=== PATIENT | male | born 1945 | race Two or more races ===

== ENCOUNTER 2021-05-12 08:26 | Emergency (ER) | payer OTHER ==
[~2021-05-12] VITALS: Ht 180.3 cm; Wt 122.5 kg
[2021-05-12 09:55] LABS: Basophils # (auto) 0 10 ^3/uL (0-0.2); Basophils % (auto) 0.5 % (0.0-2.0); Eosinophils # (auto) 0 10 ^3/uL (0-0.8); Eosinophils % (auto) 0.3 % (0.0-7.0); Hematocrit 39.7 % (41.0-53.0); Hemoglobin 13.2 g/dL (13.5-17.5); Lymphocytes % (auto) 10.4 % (10.0-50.0); Mean Corpuscular Hemoglobin 31.1 pg (28.0-32.0); Mean Corpuscular Hgb Conc. 33.2 g/dL (32.0-36.0); Mean Corpuscular Volume 93.6 fL (80.0-100.0); Monocytes # (auto) 0.9 10 ^3/uL (0-1.3); Monocytes % (auto) 9.9 % (0.0-12.0); Neutrophils # (auto) 7.6 10 ^3/uL (1.6-8.6); Neutrophils % (auto) 78.9 % (37.0-80.0); Nucleated Red Blood Cells % 0.1 %; Red Blood Cells 4.24 10^6/uL (4.5-5.90); Red Cell Distribution Width 15.6 % (11.8-14.3); White Blood Cell 9.6 10^3/uL (4.4-10.8)
[2021-05-12 10:12] LABS: Albumin 3.2 g/dL (3.4-5.0)
[2021-05-12 10:17] LABS: BUN/Creatinine Ratio 23.8; Total Protein 7.2 g/dL (6.4-8.2)
[2021-05-12 10:52] LABS: Potassium 5.7 mmol/L (3.5-5.1)
[2021-05-12] MEDS ORDERED: HYDROmorphone HCL 2 MG/ML VL IV ONE (11:30)
[2021-05-12] MEDS ORDERED: ALBUTEROL SULF 2.5 MG/0.5ML(0.5%) NEB SOLN NEB ONE ×2 (11:30→20:15)
[2021-05-12] MEDS ORDERED: SODIUM CHLORIDE 0.9% 1,000 ML IV ONE (11:30)
[2021-05-12] MEDS ORDERED: IPRATROPIUM BROM 0.5 MG/2.5ML INH SOL NEB ONE ×2 (11:30→20:15)
[2021-05-12] MEDS ORDERED: METOCLOPRAMIDE HCL 5MG/ml INJ 2ml VIAL IV ONE (11:30)
[2021-05-12] MEDS ORDERED: methylPREDNISolone SOD SUCC 125 MG/2 ML VL IV ONE (11:30)
[2021-05-12 13:42] LABS: Urine Bacteria NONE SEEN /hpf (None Seen); Urine Blood 2+ /uL (Negative); Urine Mucus FEW (None Seen); Urine Specific Gravity 1.023 (1.001-1.035); Urine WBC 5 /hpf (0 - 3)
[2021-05-12] MEDS ORDERED: AZITHROMYCIN 500MG/ 250ML 250 ML IV ONE (15:15)
[2021-05-12] MEDS ORDERED: cefTRIAXone 1GM/50ML D5W 50 ML IV ONE (15:15)
[2021-05-12 19:29] LABS: Lactic Acid w/Reflex 2.8 mmol/L (0.4-2.0)
[2021-05-12 22:19] VITALS: BP 124/71
== END 2021-05-12 22:41 | disposition short-term general hospital (02) ==
LOC: ER 08:26 → EDBD 08:26 → ER 22:41
DX: J18.9 Pneumonia, unspecified organism (principal); R41.82 Altered mental status, unspecified; J90 Pleural effusion, not elsewhere classified; N40.0 Benign prostatic hyperplasia without lower urinary tract symptoms; J44.1 Chronic obstructive pulmonary disease with (acute) exacerbation; R39.14 Feeling of incomplete bladder emptying; K44.9 Diaphragmatic hernia without obstruction or gangrene; E11.9 Type 2 diabetes mellitus without complications; Z20.822 Contact with and (suspected) exposure to COVID-19
CPT/HCPCS: 36415; 71045; 74176; 80053; 81001; 82962; 83605; 83690; 83735; 84132; 84484; 85025; 87040; 87426; 93005; 94640; 96361; 96365; 96368; 96375; 99285; J0456; J0696; J1170; J2930; J7030; J7644

== ENCOUNTER 2021-06-14 21:45 | Inpatient (IN) | payer OTHER ==
[~2021-06-14] VITALS: Ht 182.9 cm; Wt 116.0 kg
[2021-06-14 23:26] LABS: Urine WBC None Seen /hpf (0 - 3)
[2021-06-14 23:30] LABS: Urine Bacteria NONE SEEN /hpf (None Seen); Urine Blood 2+ /uL (Negative); Urine Mucus FEW (None Seen); Urine Specific Gravity 1.023 (1.001-1.035)
[2021-06-15] LABS: Basophils # (auto) 0 10 ^3/uL (0-0.2); Basophils % (auto) 0.1 % (0.0-2.0); Eosinophils # (auto) 0 10 ^3/uL (0-0.8); Eosinophils % (auto) 0.2 % (0.0-7.0); Hematocrit 38.5 % (41.0-53.0); Hemoglobin 12.5 g/dL (13.5-17.5); Lymphocytes # (auto) 0.4 10 ^3/uL (0.4-5.4); Lymphocytes % (auto) 3.8 % (10.0-50.0); Mean Corpuscular Hgb Conc. 32.6 g/dL (32.0-36.0); Mean Corpuscular Volume 92.2 fL (80.0-100.0); Monocytes # (auto) 0.5 10 ^3/uL (0-1.3); Monocytes % (auto) 4.7 % (0.0-12.0); Neutrophils # (auto) 9.8 10 ^3/uL (1.6-8.6); Neutrophils % (auto) 91.2 % (37.0-80.0); Red Blood Cells 4.17 10^6/uL (4.5-5.90); Red Cell Distribution Width 16.6 % (11.8-14.3); White Blood Cell 10.8 10^3/uL (4.4-10.8)
[2021-06-15 00:24] LABS: Albumin 2.1 g/dL (3.4-5.0); Calcium 7.7 mg/dL (8.5-10.1); Potassium 4.3 mmol/L (3.5-5.1)
[2021-06-15 00:29] LABS: BUN/Creatinine Ratio 45.8; Bilirubin, Total 0.6 mg/dL (0.2-1.0)
[2021-06-15] MEDS ORDERED: DEXTROSE 50% SYRINGE 50 ML IV ONE (05:32)
[2021-06-15] MEDS ORDERED: DEXTROSE 10% 1,000 ML IV ONE (05:33)
[2021-06-15] MEDS ORDERED: levoFLOXacin 500MG 100 ML IV ONE (06:45)
[2021-06-15] MEDS ORDERED: DEXTROSE (25%) 10 ML SYRG IV ONE ×2 (07:30)
[2021-06-15] MEDS ORDERED: ENOXAPARIN SOD 120 MG/0.8 ML SYRINGE SC ONE (09:30)
[2021-06-15] MEDS ORDERED: NITROGLYCERIN 0.4 MG SL TAB SL PRN (12:30)
[2021-06-15] MEDS ORDERED: MORPHINE SULFATE INJECTION 2 MG/ML SYRG IV PRN ×2 (12:30→16:30)
[2021-06-15] MEDS ORDERED: IPRATROPIUM BROM 0.5 MG/2.5ML INH SOL NEB ONE ×2 (14:45→16:30)
[2021-06-15] MEDS ORDERED: DEXTROSE (50%) 50ML SYRG IV PRN (16:15)
[2021-06-15] MEDS ORDERED: ALBUTEROL SULF 2.5 MG/0.5ML(0.5%) NEB SOLN NEB ONE (16:30)
[2021-06-15] MEDS ORDERED: DOCUSATE SOD 100 MG CAP PO PRN (16:30)
[2021-06-15] MEDS ORDERED: METOPROLOL SUCCINATE XL 50 MG TAB PO ONE (16:30)
[2021-06-15] MEDS ORDERED: HYDROcodone-ACET 5/325MG TAB PO PRN (16:30)
[2021-06-15] MEDS ORDERED: BUDESONIDE (INHALATION) 0.5 MG/2 ML NEB NEB ONE (16:30)
[2021-06-15] MEDS ORDERED: HYDROcodone-ACET 5/325MG TAB PO ONE (16:30)
[2021-06-15] MEDS ORDERED: ONDANSETRON HCL 4 MG/2 ML VIAL IV PRN (16:30)
[2021-06-15] MEDS ORDERED: LORazepam 0.5 MG TAB PO PRN (16:30)
[2021-06-15] MEDS ORDERED: hydrALAZINE HCL 20 MG/ML VL IV PRN (16:30)
[2021-06-15] MEDS ORDERED: IPRATROPIUM BROM 0.5 MG/2.5ML INH SOL NEB PRN (16:45)
[2021-06-15] MEDS ORDERED: QUET25TA37 PO (17:01)
[2021-06-15] MEDS ORDERED: BISO5TAB44 PO (17:01)
[2021-06-15] MEDS ORDERED: TAMS0.4C36 PO (17:01)
[2021-06-15] MEDS ORDERED: METH4TAB PO (17:01)
[2021-06-15] MEDS ORDERED: CLON0.5T3 PO (17:01)
[2021-06-15] MEDS ORDERED: LIDO2SOL18 MT (17:01)
[2021-06-15] MEDS ORDERED: WARF3TAB22 PO (17:01)
[2021-06-15] MEDS ORDERED: FINA5TAB4 PO (17:01)
[2021-06-15] MEDS ORDERED: NYS5LQ MT (17:01)
[2021-06-15] MEDS ORDERED: LOSA-69 PO (17:01)
[2021-06-15] MEDS ORDERED: DULO20CA PO (17:01)
[2021-06-15 17:45] VITALS: BP 132/56
[2021-06-15] MEDS ORDERED: IPRATROPIUM BROM 0.5 MG/2.5ML INH SOL NEB SCH (18:00)
[2021-06-15 18:04] LABS: INR 6.93 (0.9-1.15)
[2021-06-15] MEDS: FUROSEMIDE 20 MG/2 ML VIAL IV SCH (19:47)
[2021-06-15] MEDS: D5W 5% 1,000 ML IV SCH (19:47)
[2021-06-15] MEDS: ACCU-CHEK COMFORT CURVE STRIP VI SCH (20:49)
[2021-06-15] MEDS: InsuLIN REG 1unit/0.01ml Soln (100units/ml) SC SCH (20:49)
[2021-06-15] MEDS: PANTOPRAZOLE 40 MG/10 ML VIAL INJ IV SCH (21:52)
[2021-06-15] MEDS: POTASSIUM CHL 20 Meq TABLET PO SCH (21:52)
[2021-06-15 22:00] VITALS: BP 139/52
[2021-06-15] MEDS ORDERED: ATORVASTATIN 20 MG TAB PO SCH (22:00)
[2021-06-15] MEDS: IPRATROPIUM BROM 0.5 MG/2.5ML INH SOL NEB SCH (22:00)
[2021-06-16] MEDS: ACCU-CHEK COMFORT CURVE STRIP VI SCH ×7 (00:06→23:35)
[2021-06-16 01:07] LABS: Hematocrit 37.4 % (41.0-53.0)
[2021-06-16] MEDS: InsuLIN REG 1unit/0.01ml Soln (100units/ml) SC SCH ×7 (04:00→23:36)
[2021-06-16 05:00] VITALS: BP 107/48
[2021-06-16] MEDS: FUROSEMIDE 20 MG/2 ML VIAL IV SCH (06:00)
[2021-06-16] MEDS: ACETYLCYSTEINE 10 %(100MG/ML) SOL 4ML NEB SCH ×2 (06:00→20:22)
[2021-06-16 09:00] VITALS: BP 105/54
[2021-06-16] MEDS: POTASSIUM CHL 20 Meq TABLET PO SCH (09:51)
[2021-06-16] MEDS: PANTOPRAZOLE 40 MG/10 ML VIAL INJ IV SCH ×2 (09:51→21:13)
[2021-06-16] MEDS: levoFLOXacin 500MG 100 ML IV SCH (09:51)
[2021-06-16] MEDS: ENOXAPARIN SOD 40 MG/0.4 ML SYRINGE SC SCH (09:52)
[2021-06-16] MEDS: D5W 5% 1,000 ML IV SCH (09:53)
[2021-06-16] MEDS: ASPirin 81 mg TAB PO SCH (09:54)
[2021-06-16] MEDS ORDERED: BENAZEPRIL HCL 10 MG TAB PO SCH (10:00)
[2021-06-16] MEDS: BUDESONIDE (INHALATION) 0.5 MG/2 ML NEB NEB SCH ×2 (10:00→20:23)
[2021-06-16] MEDS ORDERED: METOPROLOL SUCCINATE XL 50 MG TAB PO SCH (10:00)
[2021-06-16 13:00] VITALS: BP 147/63
[2021-06-16 13:48] LABS: Basophils # (auto) 0 10 ^3/uL (0-0.2); Basophils % (auto) 0.3 % (0.0-2.0); Eosinophils # (auto) 0.1 10 ^3/uL (0-0.8); Eosinophils % (auto) 0.7 % (0.0-7.0); Hemoglobin 12.3 g/dL (13.5-17.5); Lymphocytes # (auto) 0.9 10 ^3/uL (0.4-5.4); Lymphocytes % (auto) 11.9 % (10.0-50.0); Mean Corpuscular Hemoglobin 31.3 pg (28.0-32.0); Mean Corpuscular Hgb Conc. 34.3 g/dL (32.0-36.0); Mean Corpuscular Volume 91.2 fL (80.0-100.0); Monocytes # (auto) 0.5 10 ^3/uL (0-1.3); Monocytes % (auto) 7.2 % (0.0-12.0); Neutrophils % (auto) 79.9 % (37.0-80.0); Nucleated Red Blood Cells % 0.2 %; Red Blood Cells 3.94 10^6/uL (4.5-5.90); Red Cell Distribution Width 16.5 % (11.8-14.3); White Blood Cell 7.6 10^3/uL (4.4-10.8)
[2021-06-16 14:03] LABS: Albumin 1.9 g/dL (3.4-5.0); Calcium 7.1 mg/dL (8.5-10.1); Potassium 3.1 mmol/L (3.5-5.1)
[2021-06-16 14:13] LABS: Partial Thromboplastin Time 35.8 sec (23.6-33.0)
[2021-06-16 14:16] LABS: BUN/Creatinine Ratio 30.3; Phosphorus 2.6 mg/dL (2.5-4.90); Total Protein 4.5 g/dL (6.4-8.2)
[2021-06-16] MEDS ORDERED: POTASSIUM CHL 20 Meq TABLET PO ONE (15:45)
[2021-06-16] MEDS: POTASSIUM CHL 10MEQ/50ML 50 ML IV SCH ×2 (17:00→18:00)
[2021-06-16 17:06] VITALS: BP 130/57
[2021-06-16] MEDS: LIDOCAINE VISCOUS 2% 15ML UD MT PRN (17:40)
[2021-06-16] MEDS: NYSTATIN (MOUTH-THROAT) 500,000 UNITS/5 ML SUSP MT SCH ×2 (17:43→21:13)
[2021-06-16] MEDS: ALBUTEROL SULF 2.5 MG/0.5ML(0.5%) NEB SOLN NEB PRN (20:23)
[2021-06-16] MEDS: IPRATROPIUM BROM 0.5 MG/2.5ML INH SOL NEB SCH (20:23)
[2021-06-16] MEDS: MUPIROCIN 2% OINT 15gm or 22gm EACHNOSTRI SCH (21:14)
[2021-06-16 23:47] VITALS: BP 135/51
[2021-06-17] MEDS: LIDOCAINE VISCOUS 2% 15ML UD MT PRN ×2 (00:26→08:34)
[2021-06-17] MEDS: BUDESONIDE (INHALATION) 0.5 MG/2 ML NEB NEB SCH ×3 (02:34→22:32)
[2021-06-17] MEDS: ALBUTEROL SULF 2.5 MG/0.5ML(0.5%) NEB SOLN NEB PRN ×2 (02:35→22:32)
[2021-06-17] MEDS: IPRATROPIUM BROM 0.5 MG/2.5ML INH SOL NEB PRN ×2 (02:35→22:32)
[2021-06-17] MEDS: ACCU-CHEK COMFORT CURVE STRIP VI SCH ×5 (04:06→20:48)
[2021-06-17] MEDS: InsuLIN REG 1unit/0.01ml Soln (100units/ml) SC SCH ×5 (04:11→20:50)
[2021-06-17 05:31] VITALS: BP 120/64
[2021-06-17] MEDS ORDERED: ACETYLCYSTEINE 10 %(100MG/ML) SOL 4ML NEB PRN (06:00)
[2021-06-17] MEDS: NYSTATIN (MOUTH-THROAT) 500,000 UNITS/5 ML SUSP MT SCH ×4 (06:09→22:48)
[2021-06-17] MEDS: D5W 5% 1,000 ML IV SCH (07:04)
[2021-06-17] MEDS: ASPirin 81 mg TAB PO SCH (08:33)
[2021-06-17] MEDS: levoFLOXacin 500MG 100 ML IV SCH (08:44)
[2021-06-17] MEDS: PANTOPRAZOLE 40 MG/10 ML VIAL INJ IV SCH ×2 (08:45→22:48)
[2021-06-17] MEDS: DULoxetine HCL 30 MG CAP PO SCH (08:45)
[2021-06-17] MEDS: FINASTERIDE 5 MG TAB PO SCH (08:46)
[2021-06-17] MEDS: ENOXAPARIN SOD 40 MG/0.4 ML SYRINGE SC SCH (08:46)
[2021-06-17 09:18] VITALS: BP 138/63
[2021-06-17 10:15] LABS: Hematocrit 37.2 % (41.0-53.0); Hemoglobin 12.2 g/dL (13.5-17.5)
[2021-06-17 10:32] LABS: Partial Thromboplastin Time 37.4 sec (23.6-33.0)
[2021-06-17 10:45] LABS: Potassium 3.1 mmol/L (3.5-5.1)
[2021-06-17 10:50] LABS: INR 6.57 (0.9-1.15)
[2021-06-17 10:57] LABS: Calcium 7.2 mg/dL (8.5-10.1)
[2021-06-17 12:47] VITALS: BP 116/69
[2021-06-17] MEDS: MUPIROCIN 2% OINT 15gm or 22gm EACHNOSTRI SCH ×2 (12:55→22:48)
[2021-06-17 12:56] LABS: BUN/Creatinine Ratio 22.5
[2021-06-17 14:54] LABS: Hepatitis A Ab IgM Negative
[2021-06-17 14:55] LABS: Hepatitis B Core IgM Negative
[2021-06-17 15:06] LABS: Hepatitis C Antibody Negative (Negative)
[2021-06-17 17:15] VITALS: BP 126/60
[2021-06-18 00:15] VITALS: BP 125/62
[2021-06-18] MEDS: ACCU-CHEK COMFORT CURVE STRIP VI SCH ×4 (01:05→12:00)
[2021-06-18] MEDS: InsuLIN REG 1unit/0.01ml Soln (100units/ml) SC SCH ×4 (01:06→12:48)
[2021-06-18 05:48] VITALS: BP 142/72
[2021-06-18] MEDS: NYSTATIN (MOUTH-THROAT) 500,000 UNITS/5 ML SUSP MT SCH ×2 (06:18→12:47)
[2021-06-18] MEDS: BUDESONIDE (INHALATION) 0.5 MG/2 ML NEB NEB SCH (06:23)
[2021-06-18] MEDS: IPRATROPIUM BROM 0.5 MG/2.5ML INH SOL NEB PRN (06:23)
[2021-06-18] MEDS: ALBUTEROL SULF 2.5 MG/0.5ML(0.5%) NEB SOLN NEB PRN (06:23)
[2021-06-18] MEDS ORDERED: POTASSIUM CHL 20 Meq TABLET PO ONE ×2 (08:45→13:00)
[2021-06-18 09:00] VITALS: BP_SYST 132; BP_SYST 141; BP_DIAS 57; BP_DIAS 65
[2021-06-18] MEDS: PANTOPRAZOLE 40 MG/10 ML VIAL INJ IV SCH (10:00)
[2021-06-18] MEDS: ASPirin 81 mg TAB PO SCH (10:00)
[2021-06-18] MEDS: DULoxetine HCL 30 MG CAP PO SCH (10:01)
[2021-06-18] MEDS: FINASTERIDE 5 MG TAB PO SCH (10:01)
[2021-06-18] MEDS: ENOXAPARIN SOD 40 MG/0.4 ML SYRINGE SC SCH (10:01)
[2021-06-18] MEDS: MUPIROCIN 2% OINT 15gm or 22gm EACHNOSTRI SCH (10:05)
[2021-06-18 10:49] LABS: INR 3.99 (0.9-1.15); Partial Thromboplastin Time 33.3 sec (23.6-33.0)
[2021-06-18 11:37] LABS: Hematocrit 35.4 % (41.0-53.0)
[2021-06-18 12:07] LABS: Calcium 7.2 mg/dL (8.5-10.1); Potassium 3.3 mmol/L (3.5-5.1)
[2021-06-18 14:59] VITALS: BP 141/67
== END 2021-06-18 15:34 | disposition home health service (06) | DRG 637 ==
LOC: EDBD 21:45 → EDUNIT# 21:45 → ER 21:45 → TELE 06-15 12:16 → TELE-CENTR 06-15 15:30
PROVIDERS: ADMIT Hospitalist; ATTEND Internal Medicine
PROC: 02HV33Z Insertion of Infusion Device into Superior Vena Cava, Percutaneous Approach (ICD-10-PCS; principal; 2021-06-15)
DX: E11.649 Type 2 diabetes mellitus with hypoglycemia without coma (principal); G93.41 Metabolic encephalopathy; I21.4 Non-ST elevation (NSTEMI) myocardial infarction; J18.9 Pneumonia, unspecified organism; E44.0 Moderate protein-calorie malnutrition; J96.10 Chronic respiratory failure, unspecified whether with hypoxia or hypercapnia; J44.0 Chronic obstructive pulmonary disease with (acute) lower respiratory infection; D68.69 Other thrombophilia; K21.9 Gastro-esophageal reflux disease without esophagitis; N40.0 Benign prostatic hyperplasia without lower urinary tract symptoms; I48.91 Unspecified atrial fibrillation; D64.9 Anemia, unspecified; E66.01 Morbid (severe) obesity due to excess calories; E78.5 Hyperlipidemia, unspecified; I11.0 Hypertensive heart disease with heart failure; I25.10 Atherosclerotic heart disease of native coronary artery without angina pectoris; T45.515A Adverse effect of anticoagulants, initial encounter; Y92.89 Other specified places as the place of occurrence of the external cause; Z20.822 Contact with and (suspected) exposure to COVID-19; R74.01 Elevation of levels of liver transaminase levels; Z88.0 Allergy status to penicillin; N32.89 Other specified disorders of bladder; Z68.33 Body mass index [BMI] 33.0-33.9, adult
CPT/HCPCS: 36415; 36556; 36600; 70450; 71045; 76705; 80048; 80053; 80061; 80074; 81001; 82805; 82962; 83036; 83605; 83615; 83735; 83880; 84100; 84443; 84484; 85014; 85018; 85025; 85379; 85610; 85652; 85730; 86850; 86900; 86901; 87040; 87081; 87086; 87426; 93005; 93306; 94640; 96365; 96372; 96375; 97163; 97530; 99291; C9113; G0378; J1815; J1956

== ENCOUNTER 2021-08-07 05:15 | Emergency (ER) | payer OTHER ==
[~2021-08-07 05:15] MED LIST: BISO5TAB44 PO; CLON0.5T3 PO; DULO20CA PO; FINA5TAB4 PO; LIDO2SOL18 MT; LOSA-69 PO; METH4TAB PO; NYS5LQ MT; QUET25TA37 PO; TAMS0.4C36 PO; WARF3TAB22 PO
[2021-08-07 06:12] LABS: Urine Bacteria FEW /hpf (None Seen); Urine Blood Negative /uL (Negative); Urine Budding Yeast MANY /hpf (None Seen); Urine Specific Gravity 1.018 (1.001-1.035); Urine WBC 320 /hpf (0 - 3)
[2021-08-07 06:22] LABS: Basophils # (auto) 0 10 ^3/uL (0-0.2); Basophils % (auto) 0.6 % (0.0-2.0); Eosinophils # (auto) 0.2 10 ^3/uL (0-0.8); Eosinophils % (auto) 2.6 % (0.0-7.0); Hematocrit 44.3 % (41.0-53.0); Hemoglobin 14.7 g/dL (13.5-17.5); Lymphocytes # (auto) 1.3 10 ^3/uL (0.4-5.4); Lymphocytes % (auto) 17.8 % (10.0-50.0); Mean Corpuscular Hemoglobin 29.9 pg (28.0-32.0); Mean Corpuscular Hgb Conc. 33.2 g/dL (32.0-36.0); Monocytes # (auto) 0.5 10 ^3/uL (0-1.3); Monocytes % (auto) 7.2 % (0.0-12.0); Neutrophils # (auto) 5.3 10 ^3/uL (1.6-8.6); Neutrophils % (auto) 71.8 % (37.0-80.0); Red Blood Cells 4.92 10^6/uL (4.5-5.90); Red Cell Distribution Width 18.5 % (11.8-14.3); White Blood Cell 7.4 10^3/uL (4.4-10.8)
[2021-08-07 06:37] LABS: Albumin 2.7 g/dL (3.4-5.0); BUN/Creatinine Ratio 17.1; Calcium 8.8 mg/dL (8.5-10.1); Potassium 4.1 mmol/L (3.5-5.1)
[2021-08-07 06:40] LABS: Bilirubin, Total 1.1 mg/dL (0.2-1.0); Total Protein 6.1 g/dL (6.4-8.2)
[2021-08-07] MEDS ORDERED: cefTRIAXone 1GM/50ML D5W 50 ML IV ONE (07:15)
[2021-08-07] MEDS ORDERED: SODIUM CHLORIDE 0.9% 500 ML IVB ONE (07:15)
[2021-08-07] MEDS ORDERED: SODIUM CHLORIDE 0.9% 1,000 ML IV ONE (07:15)
[2021-08-07 11:37] VITALS: BP 115/56
== END 2021-08-07 11:38 | disposition home or self-care (01) ==
LOC: EDBD 05:15 → ER 05:15
DX: R33.9 Retention of urine, unspecified (principal); N39.0 Urinary tract infection, site not specified; E11.65 Type 2 diabetes mellitus with hyperglycemia; N40.0 Benign prostatic hyperplasia without lower urinary tract symptoms; I10 Essential (primary) hypertension; J44.9 Chronic obstructive pulmonary disease, unspecified; Z87.891 Personal history of nicotine dependence; Z79.01 Long term (current) use of anticoagulants; Z79.899 Other long term (current) drug therapy; Z88.0 Allergy status to penicillin
CPT/HCPCS: 36415; 80053; 81001; 85025; 87086; 87088; 87186; 96361; 96365; 99284; J0696; J7030

== ENCOUNTER 2021-08-14 12:29 | Emergency (ER) | payer OTHER ==
[~2021-08-14] VITALS: Ht 177.8 cm; Wt 81.6 kg
[2021-08-14 15:12] LABS: Urine Bacteria MANY /hpf (None Seen); Urine Blood 1+ /uL (Negative); Urine Budding Yeast MANY /hpf (None Seen); Urine Mucus FEW (None Seen); Urine Specific Gravity 1.017 (1.001-1.035); Urine WBC 1826 /hpf (0 - 3); Urine WBC Clumps PRESENT /hpf (None Seen)
[2021-08-14 15:51] LABS: Basophils # (auto) 0.1 10 ^3/uL (0-0.2); Basophils % (auto) 0.8 % (0.0-2.0); Eosinophils # (auto) 0.1 10 ^3/uL (0-0.8); Hematocrit 41.2 % (41.0-53.0); Hemoglobin 13.5 g/dL (13.5-17.5); Lymphocytes # (auto) 1.6 10 ^3/uL (0.4-5.4); Lymphocytes % (auto) 17.8 % (10.0-50.0); Mean Corpuscular Hemoglobin 29.1 pg (28.0-32.0); Mean Corpuscular Hgb Conc. 32.7 g/dL (32.0-36.0); Monocytes # (auto) 0.5 10 ^3/uL (0-1.3); Monocytes % (auto) 5.4 % (0.0-12.0); Neutrophils # (auto) 6.7 10 ^3/uL (1.6-8.6); Red Blood Cells 4.63 10^6/uL (4.5-5.90); Red Cell Distribution Width 18.2 % (11.8-14.3); White Blood Cell 8.9 10^3/uL (4.4-10.8)
[2021-08-14 16:05] LABS: Albumin 2.6 g/dL (3.4-5.0); BUN/Creatinine Ratio 19.4; Calcium 8.3 mg/dL (8.5-10.1); Potassium 4.1 mmol/L (3.5-5.1)
[2021-08-14 16:08] LABS: Bilirubin, Total 0.6 mg/dL (0.2-1.0); Total Protein 5.7 g/dL (6.4-8.2)
[2021-08-14] MEDS ORDERED: cefTRIAXone 1GM/50ML D5W 50 ML IV ONE (17:00)
[2021-08-14] MEDS ORDERED: cefTRIAXone W LIDOCAINE 1 GM IM IM ONE (17:15)
[2021-08-14 18:23] VITALS: BP 119/71
== END 2021-08-14 18:34 | disposition home or self-care (01) ==
LOC: EDBD 12:29 → ER 12:29
DX: N39.0 Urinary tract infection, site not specified (principal); E11.65 Type 2 diabetes mellitus with hyperglycemia; J44.9 Chronic obstructive pulmonary disease, unspecified; I10 Essential (primary) hypertension; Z87.891 Personal history of nicotine dependence
CPT/HCPCS: 36415; 80053; 81001; 82962; 85025; 96372; 99283; J0696

== ENCOUNTER 2021-08-16 17:06 | Emergency (ER) | payer OTHER ==
[~2021-08-16] VITALS: Ht 182.9 cm; Wt 113.4 kg
[2021-08-16 21:30] VITALS: BP 157/67
== END 2021-08-16 23:01 | disposition home or self-care (01) ==
LOC: EDBD 17:06 → ER 17:06
DX: T83.098A Other mechanical complication of other urinary catheter, initial encounter (principal); I10 Essential (primary) hypertension; E11.9 Type 2 diabetes mellitus without complications; J44.9 Chronic obstructive pulmonary disease, unspecified; Z87.891 Personal history of nicotine dependence; Z79.899 Other long term (current) drug therapy; Z79.01 Long term (current) use of anticoagulants; Z88.0 Allergy status to penicillin
CPT/HCPCS: 93005

== ENCOUNTER 2023-04-12 20:38 | Emergency (ER) | payer OTHER ==
[~2023-04-12] VITALS: Ht 182.9 cm; Wt 100.0 kg
[~2023-04-12 20:38] MED LIST changes: -LOSA-69 PO; +LOSA50TA46 PO; +WARF-111 PO; -WARF3TAB22 PO
[2023-04-12 21:05] VITALS: BP 152/71; PULSE 100; RESP 18; O2SAT 97
[2023-04-12] MEDS ORDERED: HYDROcodone-ACET 10/325MG TAB PO ONE (21:30)
[2023-04-12 22:14] LABS: Basophils # (auto) 0.1 10 ^3/uL (0-0.2); Basophils % (auto) 0.7 % (0.0-2.0); Eosinophils # (auto) 0.2 10 ^3/uL (0-0.8); Eosinophils % (auto) 2.5 % (0.0-7.0); Hematocrit 47.3 % (41.0-53.0); Hemoglobin 15.5 g/dL (13.5-17.5); Lymphocytes # (auto) 1.8 10 ^3/uL (0.4-5.4); Lymphocytes % (auto) 19.8 % (10.0-50.0); Mean Corpuscular Hemoglobin 30.2 pg (28.0-32.0); Mean Corpuscular Hgb Conc. 32.8 g/dL (32.0-36.0); Mean Corpuscular Volume 92.1 fL (80.0-100.0); Monocytes # (auto) 0.7 10 ^3/uL (0-1.3); Monocytes % (auto) 7.6 % (0.0-12.0); Neutrophils # (auto) 6.2 10 ^3/uL (1.6-8.6); Neutrophils % (auto) 69.4 % (37.0-80.0); Red Blood Cells 5.14 10^6/uL (4.5-5.90); Red Cell Distribution Width 16.3 % (11.8-14.3); White Blood Cell 8.9 10^3/uL (4.4-10.8)
[2023-04-12 22:26] LABS: Urine Bacteria NONE SEEN /hpf (None Seen); Urine Blood 3+ /uL (Negative); Urine Budding Yeast FEW /hpf (None Seen); Urine Clarity HAZY (Clear); Urine Color PINK (Yellow); Urine Hyaline Cast FEW /lpf (0 - 2); Urine Protein, UAD 2+ (Negative); Urine Specific Gravity 1.019 (1.001-1.035); Urine Urobilinogen Normal (Negative); Urine WBC 126 /hpf (0 - 3); Urine pH 5.5 (5.0-8.0)
[2023-04-12 22:37] LABS: Alanine Aminotransferase 35 U/L (7-40); Albumin 3.9 g/dL (3.2-4.8); Alkaline Phosphatase 131 U/L (46-116); Anion Gap 11 (5-15); Aspartate Aminotransferase 30 U/L (13-40); BUN/Creatinine Ratio 7.5 (10.0-20.0); Bilirubin, Total 0.8 mg/dL (0.2-1.0); Blood Urea Nitrogen 9 mg/dL (9-23); Calcium 8.3 mg/dL (8.7-10.4); Carbon Dioxide 19 mmol/L (20-30); Chloride 105 mmol/L (98-107); Glucose 236 mg/dL (74-106); Lipase 21 U/L (12-53); Potassium 4.3 mmol/L (3.5-5.1); Sodium 135 mmol/L (136-145); Total Protein 6.1 g/dL (5.7-8.2)
== END 2023-04-13 00:07 | disposition home or self-care (01) ==
LOC: ER 20:38
DX: T83.098A Other mechanical complication of other urinary catheter, initial encounter (principal); N40.1 Benign prostatic hyperplasia with lower urinary tract symptoms; R33.8 Other retention of urine; J44.9 Chronic obstructive pulmonary disease, unspecified; E11.9 Type 2 diabetes mellitus without complications; I10 Essential (primary) hypertension; Z87.891 Personal history of nicotine dependence
CPT/HCPCS: 36415; 51702; 74176; 80053; 81001; 83690; 85025

== ENCOUNTER 2023-04-17 00:57 | Emergency (ER) | payer OTHER | END 2023-04-17 01:31 | disposition left against medical advice (07) | LOC: ER 00:57 | DX: R30.9 Painful micturition, unspecified (principal); Z53.21 Procedure and treatment not carried out due to patient leaving prior to being seen by health care provider ==

== ENCOUNTER 2023-06-05 18:09 | Emergency (ER) | payer OTHER ==
[~2023-06-05] VITALS: Ht 185.4 cm; Wt 113.6 kg
[2023-06-05] MEDS ORDERED: SODIUM CHLORIDE 0.9% 500 ML IV ONE (18:30)
[2023-06-05] MEDS ORDERED: CLINDAMYCIN 600MG IV 50 ML IV ONE (18:30)
[2023-06-05 18:42] VITALS: BP 140/78; PULSE 109; RESP 16; TEMP 99.1; O2SAT 93
== END 2023-06-06 00:25 | disposition home or self-care (01) ==
LOC: ER 18:09 → EDUNIT# 18:09 → EDBD 18:09 → ER 06-06 00:25
DX: R33.9 Retention of urine, unspecified (principal); J44.9 Chronic obstructive pulmonary disease, unspecified; I10 Essential (primary) hypertension; E11.9 Type 2 diabetes mellitus without complications; Z86.73 Personal history of transient ischemic attack (TIA), and cerebral infarction without residual deficits; Z87.891 Personal history of nicotine dependence; Z79.01 Long term (current) use of anticoagulants; Z79.899 Other long term (current) drug therapy; Z88.0 Allergy status to penicillin
CPT/HCPCS: 51702

== ENCOUNTER 2023-09-07 03:27 | Emergency (ER) | payer OTHER ==
[~2023-09-07] VITALS: Ht 182.9 cm; Wt 92.7 kg
[~2023-09-07 03:27] MED LIST changes: +BACDST PO; +LOSA-534 PO; -LOSA50TA46 PO
[2023-09-07 04:00] VITALS: BP 161/62; PULSE 110; RESP 22; TEMP 97.9; O2SAT 95
== END 2023-09-07 05:05 | disposition home or self-care (01) ==
LOC: ER 03:27
DX: T83.84XA Pain due to genitourinary prosthetic devices, implants and grafts, initial encounter (principal); J44.9 Chronic obstructive pulmonary disease, unspecified; E11.9 Type 2 diabetes mellitus without complications; I10 Essential (primary) hypertension; Z86.73 Personal history of transient ischemic attack (TIA), and cerebral infarction without residual deficits; Z88.0 Allergy status to penicillin; Z87.891 Personal history of nicotine dependence
CPT/HCPCS: 51702

== ENCOUNTER 2023-09-20 15:24 | Emergency (ER) | payer OTHER ==
[~2023-09-20] VITALS: Ht 182.9 cm; Wt 100.0 kg
[2023-09-20 18:34] VITALS: BP 127/78; PULSE 72; RESP 22; O2SAT 98
[2023-09-20] MEDS ORDERED: ACET500T58 PO (18:41)
[2023-09-20] MEDS ORDERED: BACDST PO (18:41)
[2023-09-20 20:07] LABS: Urine Bacteria None Seen /hpf (None Seen)
[2023-09-20 20:19] LABS: Urine Blood 3+ /uL (Negative); Urine Clarity Ex.Turbid (Clear); Urine Color Brown (Yellow); Urine Mucus FEW (None Seen); Urine Protein, UAD 1+ (Negative); Urine Urobilinogen Normal (Negative); Urine WBC 526 /hpf (0 - 3); Urine WBC Clumps PRESENT /hpf (None Seen); Urine pH 5.5 (5.0-9.0)
[2023-09-20 20:42] VITALS: TEMP 98.2
[2023-09-20] MEDS: cefTRIAXone 1GM/50ML D5W 50 ML IV ONE (21:00)
[2023-09-20] MEDS: cefTRIAXone SOD 1,000 MG VL IM ONE (21:07)
== END 2023-09-20 21:19 | disposition home or self-care (01) ==
LOC: ER 15:24
DX: N39.0 Urinary tract infection, site not specified (principal); N40.0 Benign prostatic hyperplasia without lower urinary tract symptoms; I10 Essential (primary) hypertension; E11.9 Type 2 diabetes mellitus without complications; J44.9 Chronic obstructive pulmonary disease, unspecified; Z46.6 Encounter for fitting and adjustment of urinary device; Z86.73 Personal history of transient ischemic attack (TIA), and cerebral infarction without residual deficits; Z87.891 Personal history of nicotine dependence; Z88.0 Allergy status to penicillin; Z79.899 Other long term (current) drug therapy
CPT/HCPCS: 51702; 81001; 96372; 99284; J0696

== ENCOUNTER 2023-09-24 13:03 | Emergency (ER) | payer OTHER ==
[~2023-09-24] VITALS: Ht 182.9 cm; Wt 93.0 kg
[~2023-09-24 13:03] MED LIST changes: +ACET500T58 PO
[2023-09-24 13:40] VITALS: PULSE 70; RESP 15; O2SAT 98
[2023-09-24 14:42] LABS: Urine Bacteria None Seen /hpf (None Seen)
[2023-09-24 14:51] LABS: Urine Blood 3+ /uL (Negative); Urine Budding Yeast OCCASIONAL /hpf (None Seen); Urine Hyaline Cast FEW /lpf (0 - 2); Urine Mucus FEW (None Seen); Urine Protein, UAD TRACE (Negative); Urine Specific Gravity 1.015 (1.001-1.035); Urine Urobilinogen Normal (Negative); Urine WBC 100 /hpf (0 - 3)
[2023-09-24 14:59] LABS: Urine Clarity Cloudy (Clear); Urine Color Yellow (Yellow)
[2023-09-24 15:00] VITALS: BP 140/70; PULSE 75; RESP 12; TEMP 98.3; O2SAT 95
== END 2023-09-24 15:17 | disposition home or self-care (01) ==
LOC: ER 13:03
DX: R31.0 Gross hematuria (principal); J44.9 Chronic obstructive pulmonary disease, unspecified; E11.9 Type 2 diabetes mellitus without complications; I10 Essential (primary) hypertension; Z86.73 Personal history of transient ischemic attack (TIA), and cerebral infarction without residual deficits; Z46.6 Encounter for fitting and adjustment of urinary device; Z88.0 Allergy status to penicillin
CPT/HCPCS: 51702; 81001

== ENCOUNTER → 2023-10-19 | Emergency (ER) | payer OTHER | END | disposition left against medical advice (07) | LOC: ER 05:50 | DX: Z44.9 Encounter for fitting and adjustment of unspecified external prosthetic device (principal); Z53.21 Procedure and treatment not carried out due to patient leaving prior to being seen by health care provider ==

== ENCOUNTER 2023-11-15 19:03 | Emergency (ER) | payer OTHER ==
[~2023-11-15] VITALS: Ht 182.9 cm; Wt 90.7 kg
[2023-11-15 19:12] VITALS: BP 117/76; PULSE 76; RESP 18; O2SAT 98
== END 2023-11-15 21:30 | disposition left against medical advice (07) ==
LOC: EDBD 19:03 → ER 19:03
DX: T21.01XA Burn of unspecified degree of chest wall, initial encounter (principal); T31.0 Burns involving less than 10% of body surface; R31.9 Hematuria, unspecified; Z53.21 Procedure and treatment not carried out due to patient leaving prior to being seen by health care provider; X10.1XXA Contact with hot food, initial encounter; Y93.89 Activity, other specified; Y92.89 Other specified places as the place of occurrence of the external cause; Y99.8 Other external cause status